=== PATIENT | male | born 2000 | race Caucasian/White ===

== ENCOUNTER 2022-05-27 20:03 | Emergency (ER) | payer OTHER ==
[~2022-05-27] VITALS: Ht 177.8 cm; Wt 74.8 kg
[2022-05-27 20:20] VITALS: BP 142/72
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
[2022-05-27] MEDS ORDERED: HYDROCODONE/APAP 5/325MG TABLET ONE (20:38)
--- NOTE | 2022-05-27 20:44 | NUR ---
Michael cedillo in [facility] - 05/27/22 at 2109 by TONI RECEIVABLE EXECUTIVE AT PT'S BEDSIDE
[2022-05-27] MEDS ORDERED: HYDROCODONE/APAP 5/325MG TABLET PO ONE (21:00)
[2022-05-27] MEDS ORDERED: LIDOCAINE 2% 20 ML MDV ONE (21:13)
--- NOTE | 2022-05-27 21:45 | NUR ---
DR PAK AT PT'S BEDSIDE FOR SUTURES
--- NOTE | 2022-05-27 22:02 | NUR ---
BUYING INTERN AT PT'S BEDSIDE
--- NOTE | 2022-05-27 22:52 | NUR ---
Patient discharged to home in stable condition. Written and verbal after care instructions given. Patient verbalizes understanding of instruction. Pt ambulatory with a steady gait
== END 2022-05-27 22:53 | disposition home or self-care (01) ==
LOC: ER 20:08
DX: S63.287A Dislocation of proximal interphalangeal joint of left little finger, initial encounter (principal); S09.90XA Unspecified injury of head, initial encounter; F17.200 Nicotine dependence, unspecified, uncomplicated; V29.99XA Rider (driver) (passenger) of other motorcycle injured in unspecified traffic accident, initial encounter; Y93.89 Activity, other specified; Y92.89 Other specified places as the place of occurrence of the external cause; Y99.8 Other external cause status
CPT/HCPCS: 99284; 26770; 73140; 73130; J3490